=== PATIENT | male | born 1995 | race Two or more races ===

== ENCOUNTER 2020-05-24 09:43 | Outpatient (CLI) | payer OTHER | END 2020-05-24 23:59 | disposition home or self-care (01) | LOC: MERGE 09:43 → RAD 09:43 | PROVIDERS: ATTEND Orthopaedic Surgery | DX: R07.9 Chest pain, unspecified (principal); M41.84 Other forms of scoliosis, thoracic region | CPT/HCPCS: 71046 ==

== ENCOUNTER 2020-06-08 12:30 | Outpatient (CLI) | payer OTHER | END 2020-06-08 23:59 | disposition home or self-care (01) | LOC: CARD 12:30 | PROVIDERS: ATTEND Orthopaedic Surgery | DX: R06.02 Shortness of breath (principal) | CPT/HCPCS: 94060 ==